=== PATIENT | female | born 1980 | race Caucasian/White ===

== ENCOUNTER → 2021-05-17 | Outpatient (CLI) | payer OTHER | LOC: RAD 13:19 | DX: M25.512 Pain in left shoulder (principal) ==

== ENCOUNTER → 2021-07-10 | Outpatient (CLI) | payer OTHER | LOC: RAD 16:22 | DX: K74.3 Primary biliary cirrhosis (principal); K83.1 Obstruction of bile duct; Z98.890 Other specified postprocedural states ==

== ENCOUNTER → 2021-10-10 | Outpatient (CLI) | payer OTHER | LOC: MAMMO 13:38 | DX: Z12.31 Encounter for screening mammogram for malignant neoplasm of breast (principal) ==

== ENCOUNTER → 2024-04-20 | Outpatient (CLI) | payer BC | LOC: MAMMO 08:22 | DX: Z12.31 Encounter for screening mammogram for malignant neoplasm of breast (principal); Z01.419 Encounter for gynecological examination (general) (routine) without abnormal findings ==